=== PATIENT | female | born 1975 | race Caucasian/White ===

== ENCOUNTER 2018-08-09 13:17 | Outpatient (CLI) | payer BC | END 2018-08-09 13:18 | disposition home or self-care (01) | LOC: BICMAMMO 13:17 | PROVIDERS: ATTEND Obstetrics & Gynecology | DX: Z12.31 Encounter for screening mammogram for malignant neoplasm of breast (principal); R92.1 Mammographic calcification found on diagnostic imaging of breast | CPT/HCPCS: 77063; 77067 ==

== ENCOUNTER 2019-04-03 15:12 | Outpatient (CLI) | payer BC ==
--- NOTE | 2019-04-03 15:41 | RAD ---
XR Scoliosis Study History: Other etiopathic scoliosis Comparison: Thoracic spine radiograph 2015 Findings: Mild dextro scoliosis thoracolumbar junction measuring 9 degrees measured from superior end plate of T11 to the inferior endplate of L2. No acute fracture. Impression: Mild 9 degrees dextro scoliosis at the thoracolumbar junction.
== END 2019-04-03 15:13 | disposition home or self-care (01) ==
LOC: BICRAD 15:12
PROVIDERS: ATTEND Physician Assistant
DX: M41.25 Other idiopathic scoliosis, thoracolumbar region (principal)
CPT/HCPCS: 72081